=== PATIENT | male | born 1960 | race Caucasian/White ===

== ENCOUNTER 2019-12-14 15:17 | Observation (INO) | payer OTHER, MEDICARE ==
[~2019-12-14] VITALS: Ht 175.3 cm; Wt 87.2 kg
[~2019-12-14 15:17] MED LIST: ALBU90OI INH; ASPI325 PO; BUDE6HFA INH; CIPR500 PO; CLOP75 PO; DOCU100 PO; FISH OIL 1,0001 EAC1 PO; Imdur60 MG PO; Lisinopril2.5 MG PO; Ondansetron Odt8 MG MM; PANT40 PO; POTCHL20ER PO; Percocet 5-3251 EACH PO; Prednisone20 MG PO; SERT100 PO; THERA-D2000 UNIT PO; THERA1 EACH PO
[2019-12-14 16:03] LABS: BASOPHILS ABSOLUTE AUTO 0.07 K/mm3 (0.00-0.23); BASOPHILS PERCENT AUTO 1 % (0-2); EOSINOPHILS PERCENT AUTO 5 % (0-6); Hematocrit 41.8 % (37.0-53.0); Hemoglobin 14.2 g/dL (13.5-17.5); IMMATURE GRAN ABSOLUTE AUTO 0.06 K/mm3 (0.00-0.10); IMMATURE GRAN PERCENT AUTO 1 % (0-1); LYMPHOCYTES ABSOLUTE AUTO 2.84 K/mm3 (0.84-5.20); LYMPHOCYTES PERCENT AUTO 29 % (21-46); MONOCYTES ABSOLUTE AUTO 0.75 K/mm3 (0.16-1.47); MONOCYTES PERCENT AUTO 8 % (4-13); Mean Corpuscular HGB 32.1 pg (26.0-34.0); Mean Corpuscular Volume 95 fL (80-100); Mean Platelet Volume 10.3 fL (9.1-12.4); NEUTROPHILS ABSOLUTE AUTO 5.61 K/mm3 (1.96-9.15); NEUTROPHILS PERCENT AUTO 57 % (41-73); Platelet Count 192 K/mm3 (150-400); RDW Coefficient Variation 13.2 % (11.7-14.2); RDW Standard Deviation 46.1 fL (35.1-46.3); Red Blood Cell Count 4.42 M/mm3 (4.30-5.90); White Blood Cell Count 9.83 K/mm3 (4.00-11.30)
[2019-12-14 16:14] LABS: Alanine Aminotransfer (ALT/SGP 20 U/L (12-78); Albumin, Blood 3.6 g/dL (3.4-5.0); Albumin/Globulin Ratio 0.9 (0.8-1.8); Alk Phos 79 U/L (50-136); Anion Gap 6 mmol/L (6-16); Aspartate Aminotrans (AST/SGOT 15 U/L (12-37); Bilirubin, Total 0.4 mg/dL (0.1-1.0); Blood Urea Nitrogen 14 mg/dL (8-24); Bun/Creatinine Ratio 13.6 (12.0-20.0); CO2, Blood 26 mmol/L (21-32); Calcium, Blood 9.1 mg/dL (8.5-10.1); Chloride, Blood 108 mmol/L (98-108); Creatinine, Blood 1.03 mg/dL (0.60-1.20); Glomerular Filtration Rate >60 (60-); Glucose, Blood 97 mg/dL (70-99); Potassium, Blood 3.5 mmol/L (3.5-5.5); Sodium, Blood 140 mmol/L (136-145); Total Protein, Blood 7.6 g/dL (6.4-8.2); Troponin I <0.015 ng/mL (0.000-0.040)
[2019-12-14] MEDS ORDERED: NITROGLYCERIN4.9 GM SL (16:55)
[2019-12-14] MEDS ORDERED: ATOR80 PO (16:58)
[2019-12-14] MEDS ORDERED: METO50 PO (16:59)
[2019-12-14] MEDS ORDERED: OZEMPIC1 MG/0.75 SC (17:02)
[2019-12-14] MEDS ORDERED: FURO40 PO (17:16)
[2019-12-14] MEDS ORDERED: NOVOLOG FL100 UNIT/1 SC (17:17)
[2019-12-14] MEDS ORDERED: AMLODIPINE BES2.5 MG PO (17:18)
[2019-12-14 17:43] LABS: Source, Urine Voided
[2019-12-14 17:50] LABS: Bilirubin, Urine Neg (Neg); Blood, Urine Neg (Neg); Glucose Qualitative, Urine Neg (Neg); Ketones, Urine Neg (Neg); Leukocyte Esterase, Urine Neg (Neg); Nitrite, Urine Neg (Neg); Protein, Urine Neg (Neg); Specific Gravity, Urine 1.015 (1.003-1.022); Urobilinogen, Urine NORM (Normal)
[2019-12-14 17:56] LABS: Appearance, Urine Clear (Clear); Color, Urine Yellow (P-Yellow)
[2019-12-14] MEDS ORDERED: OZEMPIC SC (18:25)
--- NOTE | 2019-12-14 19:03 | NUR ---
ER ADMIT- PT ARRIVED TO ROOM 302 VIA W/C FROM ED AT 1800. PT A/OX4, INDEP INTO BED. PT DENIES ANY CP AT THIS TIME. TELE SR AT 69. SWAB FOR RESP PANEL AND COVID R/O COMPLETED IN ED. PT ORIENTED TO ROOM AND CALL SYSTEM. CALL LIGHT IN REACH. VSS. REPORT TO NIGHT JOHNATHAN GONZALEZ GIVEN.
[2019-12-14 19:52] LABS: Adenovirus Not Detected (NOT DETECT); Bordetella pertussis Not Detected (NOT DETECT); Chlamydophila pneumoniae Not Detected (NOT DETECT); Coronavirus 229E Not Detected (NOT DETECT); Coronavirus HKU1 Not Detected (NOT DETECT); Coronavirus NL63 Not Detected (NOT DETECT); Coronavirus OC43 Not Detected (NOT DETECT); Human Metapneumovirus Not Detected (NOT DETECT); Human Rhinovirus/Enterovirus Not Detected (NOT DETECT); Influenza A/2009-H1 Not Detected (NOT DETECT); Influenza A/H1 Not Detected (NOT DETECT); Influenza A/H3 Not Detected (NOT DETECT); Influenza B Not Detected (NOT DETECT); Mycoplasma pneumoniae Not Detected (NOT DETECT); Parainfluenza Virus 1 Not Detected (NOT DETECT); Parainfluenza Virus 2 Not Detected (NOT DETECT); Parainfluenza Virus 3 Not Detected (NOT DETECT); Parainfluenza Virus 4 Not Detected (NOT DETECT); Respiratory Syncytial Virus Not Detected (NOT DETECT)
--- NOTE | 2019-12-15 04:24 | NUR ---
SHIFT SUMMARY PT HAD UNEVENTFUL NIGHT. PT DID NOT SLEEP WELL. AWAKE MUCH OF THE NIGHT. NO COMPLAINTS OF CHEST PAIN OR SOB. TELEMETRY READING SR 70. NO CAFFEINE THIS EVENING AND NPO SINCE 0400 FOR STRESS TEST TODAY. VITAL SIGNS STABLE. WILL CONTINUE TO MONITOR.
--- NOTE | 2019-12-15 16:38 | NUR ---
SHIFT SUMMARY- PT A/OX4, INDEP IN ROOM. PT CONT TO REPORT MILD INTERMITTENT CHEST "THROBBING". TELE SR WITH PVC'S AT 69, NO EVENTS T/O THE DAY. LS CLEAR, ON RA. 1ST PORTION OF STRESS TEST COMPLETED TODAY, SECOND PORTION WILL BE TOMORROW AROUND 1200, NPO EXCEPT WATER AFTER 0800. NO OTHER ACUTE CHANGES T/O THE DAY, POSSIBLE DISCHARGE HOME TOMORROW AFTER STRESS TEST.
--- NOTE | 2019-12-15 18:04 | NUR ---
MODEL MAKING SUPERVISOR CALLED AND REPORTED A 4 BEAT RUN OF [facility] AT 1754. WENT IN TO CHECK ON PT, PT AWAKE SITTING EATING DINNER. PT REPORTS HE HAD FELT A "FLUTTER IN HIS CHEST. BP 150/82 MODEL MAKING SUPERVISOR REPORTS SR WITH BIGEMINAL PVC'S AT [address] TRONCOSO NOTIFIED. NO NEW ORDERS AT THIS TIME. WILL CONT TO MONITOR.
--- NOTE | 2019-12-16 04:28 | NUR ---
SHIFT SUMMARY PT REPORTED SOME DISCOMFORT IN HIS CHEST FOLLOWING THE FIRST PART OF HIS STRESS TEST YESTERDAY BUT STATED THAT IT HAD RESOLVED BY THIS EVENING. PT DID COMPLAIN OF LOWER BACK PAIN THAT IS CHRONIC. MEDICATED W/ 650 MG TYLENOL. PLAN FOR SECOND PART OF STRESS TEST TODAY. NO ACUTE CHANGES THIS EVENING. TELEMETRY SR IN 60'S AND VITAL SIGNS STABLE. WILL CONTINUE TO MONITOR AND REPORT TO DAY RN.
--- NOTE | 2019-12-16 16:58 | NUR ---
PATIENT GIVEN DISCHARGE INSTRUCTIONS AND EDUCATIONAL MATERIAL REGARDING CHEST PAIN AND COVID-19. ALL QUESTIONS ANSWERED. IV REMOVED AND TELE DISCONTINUED AND RETURNED TO PCU. PATIENT D/C VIA [facility] AT 1700 WHICH WILL TRANSPORT [facility] PATIENT AMBULATED OUT WITH BUS AND TROLLEY INSPECTING DISPATCHER.
== END 2019-12-16 16:58 | disposition home or self-care (01) ==
LOC: ER 15:17 → MEDS 15:18
PROVIDERS: Emergency Medicine; ADMIT Family Medicine
DX: R07.2 Precordial pain (principal); I25.10 Atherosclerotic heart disease of native coronary artery without angina pectoris; R05 Cough; R06.02 Shortness of breath; E11.9 Type 2 diabetes mellitus without complications; E78.5 Hyperlipidemia, unspecified; J44.9 Chronic obstructive pulmonary disease, unspecified; K21.9 Gastro-esophageal reflux disease without esophagitis; F17.210 Nicotine dependence, cigarettes, uncomplicated; F32.9 Major depressive disorder, single episode, unspecified; Z20.828 Contact with and (suspected) exposure to other viral communicable diseases; Z79.4 Long term (current) use of insulin; Z79.51 Long term (current) use of inhaled steroids; Z79.82 Long term (current) use of aspirin; Z79.899 Other long term (current) drug therapy; Z88.0 Allergy status to penicillin; Z88.2 Allergy status to sulfonamides; Z88.5 Allergy status to narcotic agent; Z88.7 Allergy status to serum and vaccine; Z88.8 Allergy status to other drugs, medicaments and biological substances; Z95.1 Presence of aortocoronary bypass graft; Z95.5 Presence of coronary angioplasty implant and graft
CPT/HCPCS: 0099U; 36415; 71045; 78452; 80053; 81003; 82947; 83880; 84145; 84484; 85025; 93005; 93010; 93017; 94640; 94760; 96361; 96372; 96374; 96375; 99285-25; A9270; A9270-GY; A9500; G0378; J1650; J1815; J2405; J2785; J7030; U0002

== ENCOUNTER 2020-02-08 19:50 | Emergency (ER) | payer OTHER, MEDICARE ==
[~2020-02-08] VITALS: Ht 175.3 cm; Wt 81.7 kg
[~2020-02-08 19:50] MED LIST changes: +AMLODIPINE BES2.5 MG PO; +ATOR80 PO; +FURO40 PO; +METO50 PO; +NITROGLYCERIN4.9 GM SL; +NOVOLOG FL100 UNIT/1 SC; +OZEMPIC SC; +OZEMPIC1 MG/0.75 SC
[2020-02-08] MEDS ORDERED: DIPH25 PO (20:35)
[2020-02-08] MEDS ORDERED: FAMO20 PO (20:35)
[2020-02-08] MEDS ORDERED: PRED20 PO (20:35)
== END 2020-02-08 20:59 | disposition home or self-care (01) ==
LOC: ER 19:50
DX: L50.9 Urticaria, unspecified (principal); E11.9 Type 2 diabetes mellitus without complications; I25.10 Atherosclerotic heart disease of native coronary artery without angina pectoris; J44.9 Chronic obstructive pulmonary disease, unspecified; E78.5 Hyperlipidemia, unspecified; K21.9 Gastro-esophageal reflux disease without esophagitis; F32.9 Major depressive disorder, single episode, unspecified; Z88.7 Allergy status to serum and vaccine; Z88.0 Allergy status to penicillin; Z88.2 Allergy status to sulfonamides; Z88.5 Allergy status to narcotic agent; Z88.8 Allergy status to other drugs, medicaments and biological substances; Z79.899 Other long term (current) drug therapy; Z79.02 Long term (current) use of antithrombotics/antiplatelets; Z79.82 Long term (current) use of aspirin; Z79.4 Long term (current) use of insulin
CPT/HCPCS: 99282; J7512; Q0163

== ENCOUNTER 2022-01-20 11:31 | Emergency (ER) | payer OTHER ==
[~2022-01-20] VITALS: Ht 175.3 cm; Wt 83.9 kg
[~2022-01-20 11:31] MED LIST changes: +DIPH25 PO; +FAMO20 PO; +PRED20 PO
[2022-01-20 13:17] LABS: Hematocrit 30.8 % (37.0-53.0); Hemoglobin 10.2 g/dL (13.5-17.5); Mean Corpuscular HGB 33.4 pg (26.0-34.0); Mean Corpuscular HGB Conc 33.1 g/dL (31.5-36.5); Mean Corpuscular Volume 101 fL (80-100); Mean Platelet Volume 9.7 fL (9.1-12.4); Platelet Count 220 K/mm3 (150-400); RDW Coefficient Variation 16.2 % (11.7-14.2); RDW Standard Deviation 59.1 fL (35.1-46.3); Red Blood Cell Count 3.05 M/mm3 (4.30-5.90); White Blood Cell Count 9.85 K/mm3 (4.00-11.30)
[2022-01-20] MEDS ORDERED: ROSU10TA PO (13:33)
[2022-01-20] MEDS ORDERED: LIDO700A20 TOP (13:35)
[2022-01-20 13:36] LABS: Albumin, Blood 3.6 g/dL (3.4-5.0); Bilirubin, Total 0.8 mg/dL (0.1-1.0); Bun/Creatinine Ratio 31.8 (12.0-20.0); Calcium, Blood 9.2 mg/dL (8.5-10.1); Creatinine, Blood 1.07 mg/dL (0.60-1.20); Globulin, Blood 3.6 g/dL (2.2-4.0); Potassium, Blood 4.2 mmol/L (3.5-5.5); Total Protein, Blood 7.2 g/dL (6.4-8.2)
[2022-01-20 14:10] LABS: BAND PERCENT MAN 2 % (0-8); BASOPHILS ABSOLUTE MAN 0.09 K/mm3 (0.00-0.23); BASOPHILS PERCENT MAN 1 % (0-2); EOSINOPHILS PERCENT MAN 0 % (0-6); LYMPHOCYTES ABSOLUTE MAN 0.98 K/mm3 (0.84-5.20); LYMPHOCYTES PERCENT MAN 10 % (21-46); MONOCYTES ABSOLUTE MAN 0.19 K/mm3 (0.16-1.47); MONOCYTES PERCENT MAN 2 % (4-13); NEUTROPHILS ABSOLUTE MAN 8.56 K/mm3 (1.96-9.15); SEG NEUTROPHILS PERCENT MAN 85 % (41-73); TOTAL CELLS COUNTED 100
== END 2022-01-20 18:42 | disposition home or self-care (01) ==
LOC: ER 11:31
PROVIDERS: Emergency Medicine
DX: R55 Syncope and collapse (principal); J44.9 Chronic obstructive pulmonary disease, unspecified; E11.9 Type 2 diabetes mellitus without complications; I25.10 Atherosclerotic heart disease of native coronary artery without angina pectoris; K21.9 Gastro-esophageal reflux disease without esophagitis; E78.5 Hyperlipidemia, unspecified; M48.54XA Collapsed vertebra, not elsewhere classified, thoracic region, initial encounter for fracture; Z95.5 Presence of coronary angioplasty implant and graft; Z87.891 Personal history of nicotine dependence; Z88.0 Allergy status to penicillin; Z88.2 Allergy status to sulfonamides; Z88.5 Allergy status to narcotic agent; Z88.8 Allergy status to other drugs, medicaments and biological substances; Z79.899 Other long term (current) drug therapy; Z79.82 Long term (current) use of aspirin; Z79.4 Long term (current) use of insulin; Z79.52 Long term (current) use of systemic steroids
CPT/HCPCS: 36415; 72100; 80053; 85025; 93005; 93010; A9270; J7030

== ENCOUNTER 2022-07-04 15:37 | Emergency (ER) | payer OTHER ==
[~2022-07-04] VITALS: Ht 175.3 cm; Wt 78.0 kg
[~2022-07-04 15:37] MED LIST changes: +LIDO700A20 TOP; +ROSU10TA PO
[2022-07-04] MEDS ORDERED: ALPR1 PO (16:31)
[2022-07-04] MEDS ORDERED: HYDMOR2 PO (16:31)
== END 2022-07-04 18:07 | disposition home or self-care (01) ==
LOC: ER 15:37
DX: I95.9 Hypotension, unspecified (principal); I25.10 Atherosclerotic heart disease of native coronary artery without angina pectoris; J44.9 Chronic obstructive pulmonary disease, unspecified; E11.9 Type 2 diabetes mellitus without complications; K21.9 Gastro-esophageal reflux disease without esophagitis; F17.200 Nicotine dependence, unspecified, uncomplicated; Z88.7 Allergy status to serum and vaccine; Z88.0 Allergy status to penicillin; Z88.2 Allergy status to sulfonamides; Z88.5 Allergy status to narcotic agent; Z88.8 Allergy status to other drugs, medicaments and biological substances; Z79.899 Other long term (current) drug therapy; Z79.02 Long term (current) use of antithrombotics/antiplatelets; Z79.82 Long term (current) use of aspirin; Z79.4 Long term (current) use of insulin
CPT/HCPCS: 93005; 93010; J1885; J2765

== ENCOUNTER 2022-08-02 15:49 | Inpatient (IN) | payer OTHER ==
[~2022-08-02] VITALS: Ht 175.3 cm; Wt 73.8 kg
[~2022-08-02 15:49] MED LIST changes: +ALPR1 PO; -FISH OIL 1,0001 EAC1 PO; +HYDMOR2 PO; +OMEGA-3 FISH O1 EAC6 PO
[2022-08-02 19:51] LABS: BASOPHILS ABSOLUTE AUTO 0.02 K/mm3 (0.00-0.23); BASOPHILS PERCENT AUTO 0 % (0-2); EOSINOPHILS ABSOLUTE AUTO 0.01 K/mm3 (0.00-0.68); EOSINOPHILS PERCENT AUTO 0 % (0-6); Hematocrit 34.7 % (37.0-53.0); Hemoglobin 11.8 g/dL (13.5-17.5); IMMATURE GRAN ABSOLUTE AUTO 0.06 K/mm3 (0.00-0.10); IMMATURE GRAN PERCENT AUTO 1 % (0-1); LYMPHOCYTES ABSOLUTE AUTO 0.57 K/mm3 (0.84-5.20); LYMPHOCYTES PERCENT AUTO 10 % (21-46); MONOCYTES ABSOLUTE AUTO 0.51 K/mm3 (0.16-1.47); MONOCYTES PERCENT AUTO 9 % (4-13); Mean Corpuscular HGB 31.5 pg (26.0-34.0); Mean Corpuscular Volume 93 fL (80-100); Mean Platelet Volume 9.9 fL (9.1-12.4); NEUTROPHILS ABSOLUTE AUTO 4.36 K/mm3 (1.96-9.15); NEUTROPHILS PERCENT AUTO 79 % (41-73); Platelet Count 190 K/mm3 (150-400); RDW Coefficient Variation 15.9 % (11.7-14.2); RDW Standard Deviation 54.1 fL (35.1-46.3); Red Blood Cell Count 3.75 M/mm3 (4.30-5.90); White Blood Cell Count 5.53 K/mm3 (4.00-11.30)
[2022-08-02] MEDS ORDERED: WIXELA 250-501 EAC1 INH (20:12)
[2022-08-02] MEDS ORDERED: B-121000 MC3 PO (20:14)
[2022-08-02 20:15] LABS: Albumin, Blood 2.7 g/dL (3.4-5.0); Albumin/Globulin Ratio 0.6 (0.8-1.8); Bilirubin, Total 8.9 mg/dL (0.1-1.0); Bun/Creatinine Ratio 33.2 (12.0-20.0); Calcium, Blood 9.8 mg/dL (8.5-10.1); Creatinine, Blood 0.63 mg/dL (0.60-1.20); Globulin, Blood 4.4 g/dL (2.2-4.0); Potassium, Blood 3.8 mmol/L (3.5-5.5); Total Protein, Blood 7.1 g/dL (6.4-8.2)
[2022-08-02] MEDS ORDERED: Aspir 8181 MG PO (20:15)
[2022-08-02 22:59] LABS: Source, Urine Clean Catch
[2022-08-02 23:03] LABS: Blood, Urine 2+ (Neg); Glucose Qualitative, Urine Neg (Neg); Ketones, Urine 3+ (Neg); Leukocyte Esterase, Urine 1+ (Neg); Nitrite, Urine Neg (Neg); Protein, Urine 1+ (Neg); Urobilinogen, Urine 3+ (Normal)
[2022-08-02 23:34] LABS: Bilirubin, Urine 2+ (Neg); Color, Urine Amber (P-Yellow)
[2022-08-02 23:35] LABS: Appearance, Urine Clear (Clear)
[2022-08-02 23:36] LABS: Bacteria Not Seen /hpf; Mucus Light (0-Heavy); Red Blood Cells, Urine 0-2 /hpf (0-2); Squamous Epithelial Cells Not Seen /hpf (Few); White Blood Cells, Urine 0-2 /hpf (0-5)
--- NOTE | 2022-08-03 02:08 | NUR ---
ADMIT NOTE 62 YR OLD MALE ADMITTED TO FLOOR FROM THE ED WITH DX OF SEVERE ABD PAIN. 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 ALERT TO QUESTIONS ASKED, EASILY TIRED. SKIN JAUNDICED. DROPLET ISOLATION UNTIL COVID RULED OUT. CALL LIGHT IN REACH. ORIENTED TO CALL LIGHT. RAILS UP X 3. WILL CONTINUE TO MONITOR
--- NOTE | 2022-08-03 05:31 | NUR ---
MANAGER MASSAGE DEPARTMENT SUMMARY ADMITTED EARLIER IN THE SHIFT WITH DX OF CONTINUOUS SEVERE ABD PAIN. HX LUNG CA WITH RENETTA. ALERT AND ORIENTED, BUT EASILY TIRES. SKIN JAUNDICED. NO OPEN SORE NOTED. RECEIVING DILAUDID IV FOR PAIN. IVF OF NS INFUSING. HOB ELEVATED FOR BETTER BREATHING. RAILS UP X 3. CALL LIGHT IN REACH. LUNG SOUNDS DIMINISHED TO AUSCULTATION. VSS. WILL CONTINUE TO MONITOR
[2022-08-03 16:28] LABS: Source, Urine Foley catheter
[2022-08-03 16:48] LABS: Blood, Urine 2+ (Neg); Color, Urine Amber (P-Yellow); Glucose Qualitative, Urine Neg (Neg); Ketones, Urine Neg (Neg); Leukocyte Esterase, Urine Neg (Neg); Nitrite, Urine Neg (Neg); Protein, Urine Neg (Neg); Urobilinogen, Urine 2+ (Normal)
[2022-08-03 17:24] LABS: Bilirubin, Urine 2+ (Neg)
[2022-08-03 17:25] LABS: Appearance, Urine Hazy (Clear)
[2022-08-03 17:26] LABS: Bacteria Mod /hpf; Mucus Light (0-Heavy); Red Blood Cells, Urine 0-2 /hpf (0-2); Squamous Epithelial Cells Few /hpf (Few); White Blood Cells, Urine 0-2 /hpf (0-5)
[2022-08-03 17:27] LABS: Amorphous Light (0-Heavy)
--- NOTE | 2022-08-03 18:00 | NUR ---
SHIFT SUMMARY PT A&OX4, PAIN MEDICATED PER EMAR. COMFORT MEASURES. ESCOBAR IN PLACE. MEDICATED W/ DILAUDID AND ATIVAN. CALL LIGHT W/IN REACH. FAMILY @ BEDSIDE.
--- NOTE | 2022-08-03 18:17 | NUR ---
pt seen this am to start comfort care and mutilple visits thorought the day to reassess. Pt has been having significan apin and anexiety and constipation. coupled with chroic mild nausea. Increasing fatigue and anexiety and frailty. pt reting comfortably wanted bowden for comfort. Sent UA to see if he has infection due to dark urine and frequency. Pt better control pt resting and sleeping. Family at bedside express some stress relief at his comfort. pt is service connected vet that lives alone will need placement.
--- NOTE | 2022-08-03 20:51 | NUR ---
1999 PT LYING IN BED, EYES CLOSED, WAKES EASILY TO VERBAL STIMULI. REPORTS PAIN OF 2/10 ALL OVER, REQUESTING PAIN MEDS AND ATIVAN. WILL GIVE AND EVAL FOR EFFECT. PT TURNED SELF TO R SIDE WITH HIS SISTERS ASSISTANCE. NO OTHER APPARENT SIGNS OF DISTRESS. CALL LIGHT IS IN REACH.
--- NOTE | 2022-08-03 22:24 | NUR ---
2200 PT LYING IN BED, EYES CLOSED, APPEARS TO BE RESTING. BREATHING IS EVEN, UNLABORED. NO APPARENT SIGNS OF DISTRESS. CALL LIGHT IS IN REACH. SISTER IS IN ROOM, SHE REPORTS THAT HE WAS AWAKE A SHORT TIME AGO BUT APPEARS TO BE ASLEEP AT THIS TIME. ENCOURAGED HER TO CALL IF HE WAKES AND NEEDS ANYTHING.
--- NOTE | 2022-08-04 03:32 | NUR ---
0000 PT REQUESTED AND RECIVED PAIN MEDS AT 2350, APPEARS TO BE RESTING. PT LYING IN BED, EYES CLOSED, APPEARS TO BE RESTING. BREATHING IS EVEN, UNLABORED. NO APPARENT SIGNS OF DISTRESS. CALL LIGHT IS IN REACH.
--- NOTE | 2022-08-04 03:32 | NUR ---
0200 PT LYING IN BED, EYES CLOSED, APPEARS TO BE RESTING. BREATHING IS EVEN, UNLABORED. NO APPARENT SIGNS OF DISTRESS. CALL LIGHT IS IN REACH.
[2022-08-04] MEDS ORDERED: AZELASTINE137 MCG/01 (03:56)
[2022-08-04] MEDS ORDERED: NASAL SPRAY88 ML (04:02)
[2022-08-04] MEDS ORDERED: Ondansetron Odt8 MG MM (04:03)
[2022-08-04] MEDS ORDERED: Prochlorperazin10 MG PO (04:04)
--- NOTE | 2022-08-04 04:25 | NUR ---
0400 PT REQUESTING PAIN MEDS, WILL ADMINISTER AND EVAL FOR EFFECT. NO OTHER APPARENT SIGNS OF DISTRESS. PT DENIES NEED FOR ANYTHING ELSE AT THIS TIME. CALL LIGHT IS IN REACH.
--- NOTE | 2022-08-04 04:26 | NUR ---
PT IS AAO X 4, ON 4L NC, COMFORT CARE. PT REPORTS PAIN ALL OVER, GOT DILAUDED MULT TIMES AND ATIVAN X 1 AT HS. ESCOBAR WITH TEA COLORED URINE. SOFT LUMP ON L FOREHEAD THAT PT REPORTS IS FIBROUS TISSURE.
--- NOTE | 2022-08-04 06:04 | NUR ---
PT LYING IN BED, EYES CLOSED, APPEARS TO BE RESTING. BREATHING IS EVEN, UNLABORED. NO APPARENT SIGNS OF DISTRESS. CALL LIGHT IS IN REACH. NO OTHER CHANGES THIS SHIFT.
--- NOTE | 2022-08-04 15:27 | NUR ---
Review of medications with family pt much more comfortable. He is sleeping most of the time. pain is well managed with kassidy medications and antianexiety. will transition to sub lingual medications. Plan is to go to [place] on hospice.
--- NOTE | 2022-08-04 18:48 | NUR ---
SHIFT SUMMARY- PT ALERT AND ORIENTED TO SELF, FAMILY AND STAFF. PT CURRENTLY IN BED, CALL LIGHT IN REACH NO S&S OF DISTRESS NOTED. PT SISTER HAS BEEN AT THE BEDSIDE T/O THE DAY, WENT HOME EARLY TO TRY TO GET SOME SLEEP, HER COUSIN WILL BE COMING IN TO BE WITH THE PT TOMORROW. PLAN IS FOR THE PT TO DISCHARGE TO THE [facility] TOMORROW, COVID SWAB NOT YET DONE, BUT IT IS ORDERED. WILL PASS ON TO NIGHT RN.
--- NOTE | 2022-08-04 22:48 | NUR ---
2000 PT LYING IN BED, REPORTS PAIN ALL OVER, WILL GIVE PAIN MEDS AND EVAL FOR EFFECT. ESCOBAR WITH TEA COLORED URINE. NO OTHER APPARENT SIGNS OF DISTRESS. PT DENIES NEED FOR ANYTHING ELSE AT THIS TIME. CALL LIGHT IS IN REACH. 0 PT LYING IN BED, EYES CLOSED, APPEARS TO BE RESTING. BREATHING IS EVEN, UNLABORED. NO APPARENT SIGNS OF DISTRESS. CALL LIGHT IS IN REACH.
--- NOTE | 2022-08-05 00:18 | NUR ---
0000 AT 2308 PT REQUESTED AND RECIEVED PAIN MEDS, PT IS NOW LYING IN BED, EYES CLOSED, APPEARS TO BE RESTING. BREATHING IS EVEN, UNLABORED. NO APPARENT SIGNS OF DISTRESS. CALL LIGHT IS IN REACH. BED ALARM IS ON.
--- NOTE | 2022-08-05 02:25 | NUR ---
0151 PT REQUESTED AND RECIEVED PAIN MEDS, WILL EVAL FOR EFFECT. NO OTHER APPARENT SIGNS OF DISTRESS. CALL LIGHT IS IN REACH.
--- NOTE | 2022-08-05 04:29 | NUR ---
0400 PT LYING IN BED, EYES CLOSED, APPEARS TO BE RESTING. BREATHING IS EVEN, UNLABORED. NO APPARENT SIGNS OF DISTRESS. CALL LIGHT IS IN REACH. BED ALARM IS ON.
--- NOTE | 2022-08-05 04:30 | NUR ---
PT IS AAO X 4, ON 4L NC, REPORTS PAIN ALL OVER, GOT DILAUDED 1 MG MULT TIMES. ESCOBAR WITH TEA COLORED URINE.
--- NOTE | 2022-08-05 05:58 | NUR ---
PT LYING IN BED, EYES CLOSED, APPEARS TO BE RESTING. BREATHING IS EVEN, UNLABORED. NO APPARENT SIGNS OF DISTRESS. CALL LIGHT IS IN REACH. BED ALARM IS ON. NO OTHER CHANGES THIS SHIFT.
[2022-08-05 10:01] LABS: SARS-Cov-2 (COVID-19) PCR, MMC NEGATIVE (NEGATIVE)
[2022-08-05] MEDS ORDERED: ATROPINE SULFATE5 ML SL (11:25)
[2022-08-05] MEDS ORDERED: Athenol325 MG PO (11:25)
[2022-08-05] MEDS ORDERED: TRANSDERM-SCOP1 EAC8 TD (11:26)
--- NOTE | 2022-08-05 11:28 | NUR ---
DISCHARGE NOTE- PT WAS DISCHARGED [facility]. PT WAS TAKEN VIA GURNEY TRANSPORT. MEDICATED FOR PAIN WITH RECTAL TYLENOL FOR A HEADACHE PRIOR TO LEAVING, PT WAS CONCERNED THAT PO TYLENOL WOULD BE TOO DIFFICULT TO SWALLOW. MEDICATED WITH ATIVAN AND DILAUDID PRIOR TO DISCHARGE. PASSED ALL ON IN REPORT TO [facility] ACID CONCENTRATOR. SHE WILL CALL IF THERE ARE ADDITIONAL QUESTIONS. NO FURTHER QUESTIONS AT THIS TIME.
== END 2022-08-05 11:41 | disposition hospice, inpatient (51) | DRG 435 ==
LOC: ER 15:49 → MEDS 15:50
PROVIDERS: Emergency Medicine; Family Medicine; ADMIT Internal Medicine
DX: C78.7 Secondary malignant neoplasm of liver and intrahepatic bile duct (principal); J96.01 Acute respiratory failure with hypoxia; C77.2 Secondary and unspecified malignant neoplasm of intra-abdominal lymph nodes; C34.12 Malignant neoplasm of upper lobe, left bronchus or lung; G81.91 Hemiplegia, unspecified affecting right dominant side; M80.08XA Age-related osteoporosis with current pathological fracture, vertebra(e), initial encounter for fracture; Z66 Do not resuscitate; Z51.5 Encounter for palliative care; R94.5 Abnormal results of liver function studies; E11.9 Type 2 diabetes mellitus without complications; J44.9 Chronic obstructive pulmonary disease, unspecified; E86.0 Dehydration; I25.119 Atherosclerotic heart disease of native coronary artery with unspecified angina pectoris; E78.5 Hyperlipidemia, unspecified; K21.9 Gastro-esophageal reflux disease without esophagitis; R82.90 Unspecified abnormal findings in urine; K75.9 Inflammatory liver disease, unspecified; D63.0 Anemia in neoplastic disease; Z20.822 Contact with and (suspected) exposure to COVID-19; Z88.8 Allergy status to other drugs, medicaments and biological substances; Z88.7 Allergy status to serum and vaccine; Z88.0 Allergy status to penicillin; Z88.2 Allergy status to sulfonamides; Z88.5 Allergy status to narcotic agent; Z79.899 Other long term (current) drug therapy; Z79.891 Long term (current) use of opiate analgesic; Z79.82 Long term (current) use of aspirin; Z79.811 Long term (current) use of aromatase inhibitors; Z79.51 Long term (current) use of inhaled steroids; Z79.02 Long term (current) use of antithrombotics/antiplatelets; Z79.01 Long term (current) use of anticoagulants; Z79.4 Long term (current) use of insulin; Z92.21 Personal history of antineoplastic chemotherapy; Z95.1 Presence of aortocoronary bypass graft; Z95.5 Presence of coronary angioplasty implant and graft; Z98.890 Other specified postprocedural states; Z87.891 Personal history of nicotine dependence; Z87.828 Personal history of other (healed) physical injury and trauma; Z79.52 Long term (current) use of systemic steroids
CPT/HCPCS: 51701; 71045; 74177; 80053; 81001; 83690; 85025; 87086; 94640; 94664; 94760; 96361; 96374-59; 96375; 96376; 99285-25; A9270; G0378; J1170; J2060; J2405; J3010; J7030; Q9967; U0004